=== PATIENT | female | born 1935 | race Caucasian/White ===

== ENCOUNTER 2018-05-20 13:13 | Inpatient (IN) ==
[2018-05-20 14:12] LABS: Basophils % 0.4 % (0.0-0.8); Eosinophils # 0.1 10*3/uL (0.0-0.87); Eosinophils % 0.9 % (0.00-10.9); Hematocrit 35.1 VOL% (35.7-47.0); Hemoglobin 10.8 GM/DL (12.0-16.0); Immature Granulocytes % 0.3 %; Immature Granulocytes Absolute 0.02 #; Lymphocytes # 1.2 10*3/uL (1.4-4.0); Lymphocytes % 18.3 % (21.3-54.2); Mean Corpuscular HGB Conc 30.8 GM/DL (32-36); Mean Corpuscular Hemoglobin 28 PG (27-34); Mean Corpuscular Volume 89.5 FL (87-102); Mean Platelet Volume 9.7 FL (9.6-12.0); Monocytes # 0.7 10*3/uL (0.11-0.8); Monocytes % 10.3 % (1.7-12.7); Neutrophils # 4.7 10*3/uL (1.4-7.4); Neutrophils % 69.8 % (38.7-73.9); Platelet Count 245 T/CUMM (130-400); Red Blood Count 3.92 MC/CUMM (3.8-5.5); Red Cell Distribution Width 14.6 % (9.3-17.3); White Blood Count 6.8 T/CUMM (4-12)
[2018-05-20 14:22] LABS: INR 1.5; PT Patient Result 15.4 SECS; Partial Thromboplastin Time 39.9 SECS (0-40)
[2018-05-20 14:43] LABS: Alanine Aminotransferase 33 U/L (13-56); Albumin 3.7 G/DL (3.4-5.0); Alkaline Phosphatase 166 U/L (45-117); Aspartate Amino Transferase 31 U/L (0-37); Bilirubin,Total < 0.39 MG/DL (0.2-1.0); Blood Urea Nitrogen 27 MG/DL (7-18); Calcium 9.8 MG/DL (8.5-10.1); Glucose 142 MG/DL (74-106); Osmolality,Calculated 283.5 MOS/KG (273-304); Potassium 3.8 MMOL/L (3.5-5.1); Sodium 139 MMOL/L (136-145); Thyroid Stimulating Hormone 0.952 uIU/ml (0.358-3.74); Total Protein 7.6 G/DL (6.4-8.3)
[2018-05-20] MEDS ORDERED: POTASSIUM CHLORIDE 20 MEQ TABLET PO PRN (14:47)
[2018-05-20] MEDS ORDERED: MAGNESIUM SULF RIDER 2 GM in PREMIX 1 EACH IV PRN (14:47)
[2018-05-20] MEDS ORDERED: ACETAMINOPHEN 325 MG TABLET PO PRN (14:47)
[2018-05-20] MEDS ORDERED: ONDANSETRON 4 MG/2 ML VIAL IV PRN (14:47)
[2018-05-20] MEDS ORDERED: ZALEPLON 5 MG CAPSULE PO PRN (14:47)
[2018-05-20] MEDS ORDERED: MAGNESIUM SULF RIDER 4 GM in PREMIX 1 EACH IV PRN (14:47)
[2018-05-20] MEDS: INSULIN REGULAR 100 UNIT/ML SUBCUT SCH ×2 (18:39→21:18)
[2018-05-20 19:30] LABS: Troponin I < 0.015 NG/ML (0.00-0.045)
[2018-05-20] MEDS: FUROSEMIDE 40 MG TABLET PO SCH (21:16)
[2018-05-20] MEDS: AMIODARONE 200 MG TABLET PO SCH (21:16)
[2018-05-20] MEDS: BUDESONIDE/FORMOTEROL 80-4.5 INHALER 6.9 GM INH SCH (21:16)
[2018-05-20] MEDS: FEXOFENADINE 180 MG TABLET PO SCH (21:16)
[2018-05-20] MEDS: LATANOPROST 0.005% OPH SOLN 2.5 ML BOTTLE RIGHT EYE SCH (21:20)
[2018-05-20] MEDS: DORZOLAMIDE 2% OPH SOLN 10 ML BOTTLE RIGHT EYE SCH (21:20)
[2018-05-21 01:23] LABS: Basophils % 0.3 % (0.0-0.8); Eosinophils # 0.1 10*3/uL (0.0-0.87); Eosinophils % 1.4 % (0.00-10.9); Hematocrit 33.4 VOL% (35.7-47.0); Hemoglobin 10.5 GM/DL (12.0-16.0); Immature Granulocytes % 0.4 %; Immature Granulocytes Absolute 0.03 #; Lymphocytes # 1.5 10*3/uL (1.4-4.0); Lymphocytes % 19.8 % (21.3-54.2); Mean Corpuscular HGB Conc 31.4 GM/DL (32-36); Mean Corpuscular Hemoglobin 27 PG (27-34); Mean Corpuscular Volume 87.2 FL (87-102); Mean Platelet Volume 9.6 FL (9.6-12.0); Monocytes % 12.4 % (1.7-12.7); Neutrophils # 5.1 10*3/uL (1.4-7.4); Neutrophils % 65.7 % (38.7-73.9); Platelet Count 242 T/CUMM (130-400); Red Blood Count 3.83 MC/CUMM (3.8-5.5); Red Cell Distribution Width 14.6 % (9.3-17.3); White Blood Count 7.7 T/CUMM (4-12)
[2018-05-21 01:47] LABS: Blood Urea Nitrogen 26 MG/DL (7-18); Calcium 9.3 MG/DL (8.5-10.1); Cholesterol 163 MG/DL (50-200); Glucose 103 MG/DL (74-106); HDL Cholesterol 56 MG/DL (40-60); Potassium 3.6 MMOL/L (3.5-5.1); Risk Ratio 2.91; Sodium 143 MMOL/L (136-145); Triglycerides 74 MG/DL (2-150); Troponin I < 0.015 NG/ML (0.00-0.045); VLDL CHOLESTEROL 14.8 MG/DL
[2018-05-21] MEDS: IPRATROPIUM 500 MCG/2.5 ML NEB RESP TX SCH ×4 (07:10→19:55)
[2018-05-21] MEDS ORDERED: RIVAROXABAN 20 MG TABLET PO SCH (08:00)
[2018-05-21] MEDS: INSULIN REGULAR 100 UNIT/ML SUBCUT SCH ×4 (08:23→20:17)
[2018-05-21] MEDS ORDERED: DILTIAZEM CD 240 MG CAPSULE PO SCH (09:00)
[2018-05-21 12:54] LABS: Amorphous Crystals,Urine Occasional /HPF (Few); Apearance,Urine Slightly Hazy (Clear); Bilirubin,Urine Negative (Negative); Blood, Urine Negative (Negative); Glucose,Urine (UA) Negative (Negative); Hyaline Casts,Urine 1 /LPF (0-3); Ketones,Urine Negative (Negative); Mucus,Urine Occasional /LPF (Occasional); Nitrite,Urine Negative (Negative); Protein,Urine 30 MG/DL; RBC,Urine 1 /HPF (0-4); Squamous Epithelial Cell,Urine Occasional /HPF (0-10); Urine Color Yellow (Yellow); Urine Specific Gravity 1.015 (1.001-1.035); Urine Urobilinogen < 2.0 EU/DL (0.2-1.0); WBC,Urine 1 /HPF (0-6)
[2018-05-21] MEDS: AMIODARONE 200 MG TABLET PO SCH (13:32)
[2018-05-21] MEDS: FUROSEMIDE 40 MG TABLET PO SCH (13:33)
[2018-05-21] MEDS: ALLOPURINOL 300 MG TABLET PO SCH (14:12)
[2018-05-21] MEDS: ASCORBIC ACID 500 MG TABLET PO SCH (14:12)
[2018-05-21] MEDS: CITALOPRAM 20 MG TABLET PO SCH (14:12)
[2018-05-21] MEDS: CHOLECALCIFEROL 1,000 UNIT TABLET PO SCH (14:12)
[2018-05-21] MEDS: MONTELUKAST 10 MG TABLET PO SCH (14:12)
[2018-05-21] MEDS: DOCUSATE SODIUM 100 MG CAPSULE PO SCH (14:13)
[2018-05-21] MEDS: RIVAROXABAN 20 MG TABLET PO SCH (14:13)
[2018-05-21] MEDS: BUDESONIDE/FORMOTEROL 80-4.5 INHALER 6.9 GM INH SCH ×2 (14:13→20:46)
[2018-05-21] MEDS: POTASSIUM CHLORIDE 20 MEQ TABLET PO SCH (14:13)
[2018-05-21] MEDS: PANTOPRAZOLE 40 MG TABLET PO SCH (14:13)
[2018-05-21] MEDS: TIMOLOL 0.5% OPH SOLN 5 ML BOTTLE RIGHT EYE SCH (14:14)
[2018-05-21] MEDS: DORZOLAMIDE 2% OPH SOLN 10 ML BOTTLE RIGHT EYE SCH ×2 (14:15→20:51)
[2018-05-21] MEDS: FUROSEMIDE 40 MG/4 ML VIAL IV SCH (16:13)
[2018-05-21] MEDS ORDERED: ZALEPLON 5 MG CAPSULE PO PRN (16:22)
[2018-05-21 16:54] LABS: ABG Base Excess 1.7 MMOL/L (-2.5-2.5); ABG HCO3 25.6 MMOL/L (20-26); ABG Oxygen Saturation 80.4 % (95-100); ABG PCO2 43.1 MM HG (35-48); ABG PH 7.401 (7.35-7.45); ABG PO2 48.1 MM HG (80-95); ABG TCO2 24.1 MMOL/L (23-27)
[2018-05-21] MEDS: ZOLPIDEM 5 MG TABLET PO PRN (20:44)
[2018-05-21] MEDS: DILTIAZEM CD 180 MG CAPSULE PO SCH (20:44)
[2018-05-21] MEDS: METOPROLOL TARTRATE 25 MG TABLET PO SCH (20:46)
[2018-05-21] MEDS: FEXOFENADINE 180 MG TABLET PO SCH (20:46)
[2018-05-21] MEDS: LATANOPROST 0.005% OPH SOLN 2.5 ML BOTTLE RIGHT EYE SCH (20:47)
[2018-05-22 03:41] LABS: Basophils % 0.6 % (0.0-0.8); Eosinophils # 0.1 10*3/uL (0.0-0.87); Eosinophils % 1.5 % (0.00-10.9); Hematocrit 33.3 VOL% (35.7-47.0); Hemoglobin 9.9 GM/DL (12.0-16.0); Immature Granulocytes % 0.3 %; Immature Granulocytes Absolute 0.02 #; Lymphocytes # 1.5 10*3/uL (1.4-4.0); Lymphocytes % 21.1 % (21.3-54.2); Mean Corpuscular HGB Conc 29.7 GM/DL (32-36); Mean Corpuscular Hemoglobin 27 PG (27-34); Mean Corpuscular Volume 90.2 FL (87-102); Mean Platelet Volume 9.9 FL (9.6-12.0); Monocytes # 0.9 10*3/uL (0.11-0.8); Monocytes % 12.3 % (1.7-12.7); Neutrophils # 4.6 10*3/uL (1.4-7.4); Neutrophils % 64.2 % (38.7-73.9); Platelet Count 239 T/CUMM (130-400); Red Blood Count 3.69 MC/CUMM (3.8-5.5); Red Cell Distribution Width 14.5 % (9.3-17.3); White Blood Count 7.2 T/CUMM (4-12)
[2018-05-22 04:26] LABS: Calcium 9.4 MG/DL (8.5-10.1); Osmolality,Calculated 286.3 MOS/KG (273-304); Potassium 3.8 MMOL/L (3.5-5.1)
[2018-05-22] MEDS: IPRATROPIUM 500 MCG/2.5 ML NEB RESP TX SCH ×4 (07:20→19:06)
[2018-05-22] MEDS: INSULIN REGULAR 100 UNIT/ML SUBCUT SCH ×4 (09:18→21:09)
[2018-05-22] MEDS: MONTELUKAST 10 MG TABLET PO SCH (09:23)
[2018-05-22] MEDS: POTASSIUM CHLORIDE 20 MEQ TABLET PO SCH (09:23)
[2018-05-22] MEDS: CITALOPRAM 20 MG TABLET PO SCH (09:23)
[2018-05-22] MEDS: PANTOPRAZOLE 40 MG TABLET PO SCH (09:23)
[2018-05-22] MEDS: DOCUSATE SODIUM 100 MG CAPSULE PO SCH (09:23)
[2018-05-22] MEDS: METOPROLOL TARTRATE 25 MG TABLET PO SCH ×2 (09:23→21:09)
[2018-05-22] MEDS: ASCORBIC ACID 500 MG TABLET PO SCH (09:23)
[2018-05-22] MEDS: ALLOPURINOL 300 MG TABLET PO SCH (09:23)
[2018-05-22] MEDS: CHOLECALCIFEROL 1,000 UNIT TABLET PO SCH (09:23)
[2018-05-22] MEDS: DILTIAZEM CD 180 MG CAPSULE PO SCH ×2 (09:23→21:09)
[2018-05-22] MEDS: FUROSEMIDE 40 MG/4 ML VIAL IV SCH ×2 (09:24→17:44)
[2018-05-22] MEDS: BUDESONIDE/FORMOTEROL 80-4.5 INHALER 6.9 GM INH SCH ×2 (09:24→21:15)
[2018-05-22] MEDS: DORZOLAMIDE 2% OPH SOLN 10 ML BOTTLE RIGHT EYE SCH ×2 (09:24→21:09)
[2018-05-22] MEDS: TIMOLOL 0.5% OPH SOLN 5 ML BOTTLE RIGHT EYE SCH (09:24)
[2018-05-22 09:33] LABS: ABG Base Excess -1.3 MMOL/L (-2.5-2.5); ABG HCO3 23.3 MMOL/L (20-26); ABG Oxygen Saturation 94.4 % (95-100); ABG PCO2 39.7 MM HG (35-48); ABG PH 7.383 (7.35-7.45); ABG PO2 75.9 MM HG (80-95); ABG TCO2 21.1 MMOL/L (23-27)
[2018-05-22] MEDS: RIVAROXABAN 20 MG TABLET PO SCH (13:00)
[2018-05-22] MEDS: FEXOFENADINE 180 MG TABLET PO SCH (21:09)
[2018-05-22] MEDS: LATANOPROST 0.005% OPH SOLN 2.5 ML BOTTLE RIGHT EYE SCH (21:11)
[2018-05-22] MEDS: ZOLPIDEM 5 MG TABLET PO PRN (21:21)
[2018-05-23 04:26] LABS: Basophils % 0.4 % (0.0-0.8); Eosinophils # 0.2 10*3/uL (0.0-0.87); Eosinophils % 1.7 % (0.00-10.9); Hematocrit 35.4 VOL% (35.7-47.0); Hemoglobin 10.5 GM/DL (12.0-16.0); Immature Granulocytes % 0.3 %; Immature Granulocytes Absolute 0.03 #; Lymphocytes % 22.3 % (21.3-54.2); Mean Corpuscular HGB Conc 29.7 GM/DL (32-36); Mean Corpuscular Hemoglobin 27 PG (27-34); Mean Corpuscular Volume 90.3 FL (87-102); Mean Platelet Volume 9.9 FL (9.6-12.0); Monocytes # 1.1 10*3/uL (0.11-0.8); Monocytes % 11.8 % (1.7-12.7); Neutrophils # 5.8 10*3/uL (1.4-7.4); Neutrophils % 63.5 % (38.7-73.9); Platelet Count 240 T/CUMM (130-400); Red Blood Count 3.92 MC/CUMM (3.8-5.5); Red Cell Distribution Width 14.5 % (9.3-17.3); White Blood Count 9.2 T/CUMM (4-12)
[2018-05-23 04:58] LABS: Calcium 9.7 MG/DL (8.5-10.1); Osmolality,Calculated 288.3 MOS/KG (273-304); Potassium 3.9 MMOL/L (3.5-5.1)
[2018-05-23] MEDS: IPRATROPIUM 500 MCG/2.5 ML NEB RESP TX SCH ×3 (07:08→19:18)
[2018-05-23] MEDS: INSULIN REGULAR 100 UNIT/ML SUBCUT SCH ×4 (09:31→20:37)
[2018-05-23] MEDS: DILTIAZEM CD 180 MG CAPSULE PO SCH ×2 (09:50→20:36)
[2018-05-23] MEDS: DOCUSATE SODIUM 100 MG CAPSULE PO SCH (09:50)
[2018-05-23] MEDS: MONTELUKAST 10 MG TABLET PO SCH (09:50)
[2018-05-23] MEDS: FUROSEMIDE 40 MG/4 ML VIAL IV SCH ×2 (09:50→16:35)
[2018-05-23] MEDS: CITALOPRAM 20 MG TABLET PO SCH (09:50)
[2018-05-23] MEDS: TIMOLOL 0.5% OPH SOLN 5 ML BOTTLE RIGHT EYE SCH (09:51)
[2018-05-23] MEDS: METOPROLOL TARTRATE 25 MG TABLET PO SCH ×2 (09:51→20:36)
[2018-05-23] MEDS: POTASSIUM CHLORIDE 20 MEQ TABLET PO SCH (09:51)
[2018-05-23] MEDS: PANTOPRAZOLE 40 MG TABLET PO SCH (09:51)
[2018-05-23] MEDS: BUDESONIDE/FORMOTEROL 80-4.5 INHALER 6.9 GM INH SCH ×2 (09:51→20:36)
[2018-05-23] MEDS: CHOLECALCIFEROL 1,000 UNIT TABLET PO SCH (09:53)
[2018-05-23] MEDS: DORZOLAMIDE 2% OPH SOLN 10 ML BOTTLE RIGHT EYE SCH ×2 (09:53→20:37)
[2018-05-23] MEDS: ASCORBIC ACID 500 MG TABLET PO SCH (09:53)
[2018-05-23] MEDS: ALLOPURINOL 300 MG TABLET PO SCH (09:54)
[2018-05-23] MEDS: ZOLPIDEM 5 MG TABLET PO PRN (20:35)
[2018-05-23] MEDS: LATANOPROST 0.005% OPH SOLN 2.5 ML BOTTLE RIGHT EYE SCH (20:36)
[2018-05-23] MEDS: FEXOFENADINE 180 MG TABLET PO SCH (20:36)
[2018-05-24 02:57] LABS: Basophils % 0.5 % (0.0-0.8); Eosinophils # 0.2 10*3/uL (0.0-0.87); Hematocrit 31.4 VOL% (35.7-47.0); Hemoglobin 9.4 GM/DL (12.0-16.0); Immature Granulocytes % 0.3 %; Immature Granulocytes Absolute 0.02 #; Lymphocytes # 1.6 10*3/uL (1.4-4.0); Lymphocytes % 21.3 % (21.3-54.2); Mean Corpuscular HGB Conc 29.9 GM/DL (32-36); Mean Corpuscular Hemoglobin 27 PG (27-34); Mean Platelet Volume 9.6 FL (9.6-12.0); Monocytes # 0.9 10*3/uL (0.11-0.8); Monocytes % 12.6 % (1.7-12.7); Neutrophils # 4.7 10*3/uL (1.4-7.4); Neutrophils % 63.3 % (38.7-73.9); Platelet Count 202 T/CUMM (130-400); Red Blood Count 3.49 MC/CUMM (3.8-5.5); Red Cell Distribution Width 14.5 % (9.3-17.3); White Blood Count 7.5 T/CUMM (4-12)
[2018-05-24 03:11] LABS: Calcium 8.8 MG/DL (8.5-10.1); Osmolality,Calculated 288.3 MOS/KG (273-304); Potassium 3.9 MMOL/L (3.5-5.1)
[2018-05-24] MEDS: IPRATROPIUM 500 MCG/2.5 ML NEB RESP TX SCH ×5 (07:31→18:55)
[2018-05-24] MEDS: INSULIN REGULAR 100 UNIT/ML SUBCUT SCH ×4 (08:54→21:33)
[2018-05-24] MEDS: MONTELUKAST 10 MG TABLET PO SCH (09:00)
[2018-05-24] MEDS: ALLOPURINOL 300 MG TABLET PO SCH (09:01)
[2018-05-24] MEDS: DILTIAZEM CD 180 MG CAPSULE PO SCH ×2 (09:01→21:32)
[2018-05-24] MEDS: PANTOPRAZOLE 40 MG TABLET PO SCH (09:01)
[2018-05-24] MEDS: DOCUSATE SODIUM 100 MG CAPSULE PO SCH (09:01)
[2018-05-24] MEDS: CITALOPRAM 20 MG TABLET PO SCH (09:01)
[2018-05-24] MEDS: CHOLECALCIFEROL 1,000 UNIT TABLET PO SCH (09:01)
[2018-05-24] MEDS: METOPROLOL TARTRATE 25 MG TABLET PO SCH ×2 (09:01→21:33)
[2018-05-24] MEDS: POTASSIUM CHLORIDE 20 MEQ TABLET PO SCH (09:01)
[2018-05-24] MEDS: ASCORBIC ACID 500 MG TABLET PO SCH (09:01)
[2018-05-24] MEDS: FUROSEMIDE 40 MG/4 ML VIAL IV SCH ×3 (09:02→16:19)
[2018-05-24] MEDS: BUDESONIDE/FORMOTEROL 80-4.5 INHALER 6.9 GM INH SCH ×2 (09:06→21:33)
[2018-05-24] MEDS: TIMOLOL 0.5% OPH SOLN 5 ML BOTTLE RIGHT EYE SCH (09:06)
[2018-05-24] MEDS: DORZOLAMIDE 2% OPH SOLN 10 ML BOTTLE RIGHT EYE SCH ×2 (09:07→21:34)
[2018-05-24] MEDS ORDERED: FUROSEMIDE 40 MG TABLET PO SCH (16:00)
[2018-05-24] MEDS: RIVAROXABAN 20 MG TABLET PO SCH (16:19)
[2018-05-24] MEDS: ZOLPIDEM 5 MG TABLET PO PRN (21:32)
[2018-05-24] MEDS: FEXOFENADINE 180 MG TABLET PO SCH (21:32)
[2018-05-24] MEDS: LATANOPROST 0.005% OPH SOLN 2.5 ML BOTTLE RIGHT EYE SCH (21:34)
[2018-05-25 04:48] LABS: Basophils % 0.4 % (0.0-0.8); Eosinophils # 0.1 10*3/uL (0.0-0.87); Eosinophils % 1.5 % (0.00-10.9); Hematocrit 29.9 VOL% (35.7-47.0); Hemoglobin 9.1 GM/DL (12.0-16.0); Immature Granulocytes % 0.4 %; Immature Granulocytes Absolute 0.03 #; Lymphocytes # 1.6 10*3/uL (1.4-4.0); Lymphocytes % 21.4 % (21.3-54.2); Mean Corpuscular HGB Conc 30.4 GM/DL (32-36); Mean Corpuscular Hemoglobin 27 PG (27-34); Mean Corpuscular Volume 89.3 FL (87-102); Monocytes # 0.9 10*3/uL (0.11-0.8); Monocytes % 11.5 % (1.7-12.7); Neutrophils # 4.8 10*3/uL (1.4-7.4); Neutrophils % 64.8 % (38.7-73.9); Platelet Count 204 T/CUMM (130-400); Red Blood Count 3.35 MC/CUMM (3.8-5.5); Red Cell Distribution Width 14.6 % (9.3-17.3); White Blood Count 7.5 T/CUMM (4-12)
[2018-05-25 05:19] LABS: Calcium 8.9 MG/DL (8.5-10.1); Osmolality,Calculated 286.4 MOS/KG (273-304); Potassium 3.3 MMOL/L (3.5-5.1)
[2018-05-25] MEDS: INSULIN REGULAR 100 UNIT/ML SUBCUT SCH ×4 (07:44→22:01)
[2018-05-25] MEDS: IPRATROPIUM 500 MCG/2.5 ML NEB RESP TX SCH ×4 (07:54→20:14)
[2018-05-25] MEDS ORDERED: POTASSIUM CHLORIDE 20 MEQ TABLET PO ONE (07:58)
[2018-05-25] MEDS: MONTELUKAST 10 MG TABLET PO SCH (08:00)
[2018-05-25] MEDS: FUROSEMIDE 40 MG/4 ML VIAL IV SCH ×2 (08:00→16:27)
[2018-05-25] MEDS: DILTIAZEM CD 180 MG CAPSULE PO SCH ×2 (09:48→20:11)
[2018-05-25] MEDS: ALLOPURINOL 300 MG TABLET PO SCH (09:49)
[2018-05-25] MEDS: CITALOPRAM 20 MG TABLET PO SCH (09:49)
[2018-05-25] MEDS: PANTOPRAZOLE 40 MG TABLET PO SCH (09:49)
[2018-05-25] MEDS: CHOLECALCIFEROL 1,000 UNIT TABLET PO SCH (09:49)
[2018-05-25] MEDS: ASCORBIC ACID 500 MG TABLET PO SCH (09:50)
[2018-05-25] MEDS: METOPROLOL TARTRATE 25 MG TABLET PO SCH (09:50)
[2018-05-25] MEDS: POTASSIUM CHLORIDE 20 MEQ TABLET PO SCH (09:50)
[2018-05-25] MEDS: DOCUSATE SODIUM 100 MG CAPSULE PO SCH (09:50)
[2018-05-25] MEDS: BUDESONIDE/FORMOTEROL 80-4.5 INHALER 6.9 GM INH SCH ×2 (09:56→20:11)
[2018-05-25] MEDS: TIMOLOL 0.5% OPH SOLN 5 ML BOTTLE RIGHT EYE SCH (09:56)
[2018-05-25] MEDS ORDERED: FUROSEMIDE 40 MG/4 ML VIAL IV ONE (10:01)
[2018-05-25] MEDS: DORZOLAMIDE 2% OPH SOLN 10 ML BOTTLE RIGHT EYE SCH ×2 (10:02→20:11)
[2018-05-25 10:26] LABS: % Iron Saturation 5.2 % (18-50)
[2018-05-25] MEDS: RIVAROXABAN 20 MG TABLET PO SCH (16:26)
[2018-05-25] MEDS: FUROSEMIDE 40 MG TABLET PO SCH (17:49)
[2018-05-25] MEDS: DIGOXIN 0.25 MG TABLET PO SCH (17:53)
[2018-05-25] MEDS ORDERED: CLORAZEPATE 3.75 MG TABLET PO ONE ×2 (20:03→22:30)
[2018-05-25] MEDS: FEXOFENADINE 180 MG TABLET PO SCH (20:10)
[2018-05-25] MEDS: LATANOPROST 0.005% OPH SOLN 2.5 ML BOTTLE RIGHT EYE SCH (20:11)
[2018-05-25] MEDS: CARVEDILOL 12.5 MG TABLET PO SCH (20:11)
[2018-05-25] MEDS: ZOLPIDEM 5 MG TABLET PO PRN (20:11)
[2018-05-25] MEDS: LOSARTAN 25 MG TABLET PO SCH (20:12)
[2018-05-26] MEDS: DIGOXIN 0.25 MG TABLET PO SCH (01:01)
[2018-05-26 04:20] LABS: Basophils % 0.4 % (0.0-0.8); Eosinophils # 0.1 10*3/uL (0.0-0.87); Eosinophils % 1.6 % (0.00-10.9); Hematocrit 30.6 VOL% (35.7-47.0); Hemoglobin 9.7 GM/DL (12.0-16.0); Immature Granulocytes % 0.3 %; Immature Granulocytes Absolute 0.02 #; Lymphocytes # 1.7 10*3/uL (1.4-4.0); Lymphocytes % 24.4 % (21.3-54.2); Mean Corpuscular HGB Conc 31.7 GM/DL (32-36); Mean Corpuscular Hemoglobin 28 PG (27-34); Mean Corpuscular Volume 86.9 FL (87-102); Mean Platelet Volume 9.9 FL (9.6-12.0); Monocytes # 0.8 10*3/uL (0.11-0.8); Monocytes % 11.9 % (1.7-12.7); Neutrophils # 4.4 10*3/uL (1.4-7.4); Neutrophils % 61.4 % (38.7-73.9); Platelet Count 230 T/CUMM (130-400); Red Blood Count 3.52 MC/CUMM (3.8-5.5); Red Cell Distribution Width 14.6 % (9.3-17.3); White Blood Count 7.1 T/CUMM (4-12)
[2018-05-26 04:58] LABS: Albumin 3.3 G/DL (3.4-5.0); Bilirubin,Total 0.4 MG/DL (0.2-1.0); Calcium 9.4 MG/DL (8.5-10.1); Osmolality,Calculated 287.3 MOS/KG (273-304); Potassium 3.3 MMOL/L (3.5-5.1)
[2018-05-26] MEDS: IPRATROPIUM 500 MCG/2.5 ML NEB RESP TX SCH ×3 (08:07→17:21)
[2018-05-26] MEDS: DOCUSATE SODIUM 100 MG CAPSULE PO SCH (10:08)
[2018-05-26] MEDS: ASCORBIC ACID 500 MG TABLET PO SCH (10:08)
[2018-05-26] MEDS: CHOLECALCIFEROL 1,000 UNIT TABLET PO SCH (10:08)
[2018-05-26] MEDS: MONTELUKAST 10 MG TABLET PO SCH (10:08)
[2018-05-26] MEDS: CARVEDILOL 12.5 MG TABLET PO SCH (10:09)
[2018-05-26] MEDS: DILTIAZEM CD 180 MG CAPSULE PO SCH (10:09)
[2018-05-26] MEDS: LOSARTAN 25 MG TABLET PO SCH (10:09)
[2018-05-26] MEDS: ALLOPURINOL 300 MG TABLET PO SCH (10:09)
[2018-05-26] MEDS: CITALOPRAM 20 MG TABLET PO SCH (10:09)
[2018-05-26] MEDS: FUROSEMIDE 40 MG TABLET PO SCH ×2 (10:09→17:22)
[2018-05-26] MEDS: PANTOPRAZOLE 40 MG TABLET PO SCH (10:09)
[2018-05-26] MEDS: BUDESONIDE/FORMOTEROL 80-4.5 INHALER 6.9 GM INH SCH (10:12)
[2018-05-26] MEDS: DORZOLAMIDE 2% OPH SOLN 10 ML BOTTLE RIGHT EYE SCH (10:15)
[2018-05-26] MEDS: TIMOLOL 0.5% OPH SOLN 5 ML BOTTLE RIGHT EYE SCH (10:15)
[2018-05-26] MEDS: INSULIN REGULAR 100 UNIT/ML SUBCUT SCH ×2 (10:18→12:43)
[2018-05-26 11:54] VITALS: BP 111/64
[2018-05-26] MEDS ORDERED: DIGOXIN 0.125 MG TABLET PO SCH (13:00)
[2018-05-26] MEDS ORDERED: SPIRONOLACTONE 25 MG TABLET PO SCH (17:40)
== END 2018-05-26 14:11 | disposition home health service (06) | DRG 308 ==
LOC: N.EDINP 13:13 → N.ED 13:13 → N.EDINP 16:37 → N.2W 16:48 → N.TELEN 18:23
PROVIDERS: ADMIT Internal Medicine Cardiovascular Disease; ATTEND Nurse Practitioner Acute Care